=== PATIENT | female | born 1950 | race Caucasian/White ===

== ENCOUNTER 2019-11-21 19:56 | Inpatient (IN) | payer OTHER ==
[~2019-11-21] VITALS: Ht 162.6 cm; Wt 85.9 kg
[2019-11-21 20:06] VITALS: Ht 162.6 cm; Wt 85.9 kg
[2019-11-21 20:32] LABS: BASOPHIL % 0.4 % (0-2); PLATELET COUNT 186 x10^3mcL (130-400); RED CELL DISTRIBUTION WIDTH 12.1 % (11.5-14.5)
[2019-11-21 20:45] LABS: CALCIUM 8.9 mg/dL (8.5-10.1); CARBON DIOXIDE 28.5 mmol/L (21-32); CHLORIDE SERUM 107 mmol/L (98-107); CREATININE SERUM 0.9 mg/dL (0.6-1.0); GFR1 > 60 mL/min; GLUCOSE SERUM 92 mg/dL (74-106); POTASSIUM SERUM 3.8 mmol/L (3.5-5.1); SODIUM SERUM 144 mmol/L (136-145)
[2019-11-21 20:49] LABS: ALBUMIN 3.9 g/dL (3.4-5.0); ALKALINE PHOSPHATASE 55 U/L (46-116); ALT/SGPT 22 U/L (14-59); AST/SGOT 14 U/L (15-37); BILIRUBIN TOTAL 0.39 mg/dL (0.20-1.00); TOTAL PROTEIN, SERUM 6.7 g/dL (6.4-8.2)
--- NOTE | 2019-11-21 21:17 | NUR ---
PT BIB SELF FOR INTERMITTENT CHEST PAIN THAT BEGAN AT APPROX 1430 TODAY. 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 PT REPORTS THE PAIN BEING SHARP AND INTERMITTENT. DENIES ANY PAIN UPON PALPATION AND DENIES ANY TRAUMA TO THE AREA. PT DENEIS ANY COUGH OR SOB. PT IS A/O X4. PT RESPS ARE E/U. PT IS ABLE TO AMBULATE WITH STEADY GAIT FROM ED LOBBY TO BED T1. PT PLAED ON COLLEGE RECRUITER. NO ACD NOTED AT THIS TIE
--- NOTE | 2019-11-21 21:17 | NUR ---
DR GONZALES AT BEDSIDE FOR MSE
--- NOTE | 2019-11-21 21:27 | NUR ---
PORTABLE XRAY AT BEDSIDE
--- NOTE | 2019-11-21 21:43 | NUR ---
PT MEDICATED PER EMAR ORDERS. PLEASE SEE EMAR. PT DENIES ANY PAIN AT THIS TIME. PT GIVEN CALL LIGHT. PT IS A/O X4. PT RESPS ARE E/U. NO ACD NOTED
--- NOTE | 2019-11-21 23:27 | NUR ---
PT RESTING IN ED [facility] AT THIS TIME. PT IS A/O X4. PT RESPS ARE E/.U CALL LIGHT WITH WITHIN REACH OF THE PT. NO ACD NOTED
[2019-11-22] MEDS ORDERED: TIROSINT25 MC1 (00:06)
[2019-11-22] MEDS ORDERED: SIMVASTATIN10 M1 (00:07)
[2019-11-22] MEDS ORDERED: SILDENAFIL CITR20 MG (00:07)
[2019-11-22] MEDS ORDERED: DICLOFENAC POT.50 M1 PO (00:07)
--- NOTE | 2019-11-22 00:12 | NUR ---
GAVE PT REPORT TO AMI RN ON TELE FLOOR. ALL QUESTIONS AND CONCERNS WERE ADDRESSED AT THIS TIME
[2019-11-22 00:17] LABS: MAGNESIUM 2.3 mg/dL (1.8-2.4)
[2019-11-22 00:18] LABS: CHOLESTEROL/HDL RATIO 3.6
--- NOTE | 2019-11-22 00:28 | NUR ---
PT TAKEN UPSTAIRS VIA ED [facility] BY MYSELF AND EMT RIKI. PT TRANSFERRED TO TELE BED WITH NO INCIDENCE.
[2019-11-22 00:35] VITALS: BP 108/69
--- NOTE | 2019-11-22 00:50 | NUR ---
RECEIVED PATIENT FROM ER AMBULATORY FROM [facility] TO BED, AA/O X4. DENIES CHEST PAIN. PLACE TELE #[id number] NSR WITH HR 95 NOTED. ORIENTED TO CALL LIGHT. GAVE WATER AND SNACK. CALL LIGHT WITHIN REACH. ENDORSE CARE TO DARRIN DOLL.
[2019-11-22 04:36] VITALS: BP 105/49
--- NOTE | 2019-11-22 06:22 | NUR ---
PT ASLEEP BUT EASILY AROUSABLE, SLEPT MOST OF TIME SINCE ADMITTED TO THE UNIT, NO C/O OF CHEST PAIN, 20G INSERTED TO RFA FOR CT CHEST WITH IV CONTRAST AM.
--- NOTE | 2019-11-22 07:53 | NUR ---
PATIENT IS A&OX4, FOLLOWS COMMANDS AND COOPERATES WELL. TELE #[id number], NSR, STATES MINOR AND TOLERABLE CHEST PAIN RADIATING TO LEFT ARM. PERIPEHRAL PULSES PALPABLE W/ NO SIGNS OF EDEMA. LUNG SOUNDS CTA BILATERALLY, ON RA, O2 SAT 98%, DENIES SOB. NORMOACTIVE BSX4, ABD SOFT AND ROUND, DENIES ABD PAIN. VOIDS USING RESTROOM, ABLE TO AMBULATE. SKIN IS INTACT. IV SITE IS CDI. PATIENT IS AWARE OF CT SCAN OF THE CHEST THAT WILL TAKE PLACE IN A FEW HOURS. PATIENT UNDERSTANDS THE IMPORTANCE OF BEING NPO. WILL CONTINUE TO MONITOR PATIENT.
[2019-11-22 08:06] LABS: CALCIUM 8.7 mg/dL (8.5-10.1); CARBON DIOXIDE 25.9 mmol/L (21-32); CHLORIDE SERUM 108 mmol/L (98-107); CREATININE SERUM 0.7 mg/dL (0.6-1.0); GFR1 > 60 mL/min; GLUCOSE SERUM 86 mg/dL (74-106); POTASSIUM SERUM 3.6 mmol/L (3.5-5.1); SODIUM SERUM 145 mmol/L (136-145)
[2019-11-22 08:14] LABS: BASOPHIL % 0.2 % (0-2); PLATELET COUNT 168 x10^3mcL (130-400); RED CELL DISTRIBUTION WIDTH 12.3 % (11.5-14.5)
[2019-11-22 08:25] VITALS: BP 117/58
--- NOTE | 2019-11-22 08:57 | NUR ---
PATIENT RETURNED FROM CT. PATIENT TOLERATED PROCEDURE WELL. WILL CONTINUE TO MONITOR PATIENT.
--- NOTE | 2019-11-22 09:15 | NUR ---
PATIENT IS RESTING COMFORTABLY AT THIS TIME AND IS EATING BREAKFAST. CHEST PAIN STILL PERSISTS. ADMINISTERED NTG AND WILL REASSESS IN AN HOUR FOR EFFECTIVENESS. WILL CONTINUE TO MONITOR.
[2019-11-22 12:11] VITALS: BP 125/55
[2019-11-22 15:09] VITALS: BP 105/67
--- NOTE | 2019-11-22 15:35 | NUR ---
PATIENT RECEIVED DISCHARGE INSTRUCTIONS. ALL QUESTIONS AND CONCERNS HAVE BEEN ADDRESSED. PATIENT DENIES ANY PAIN OR DISCOMFORT AT THIS TIME. IV SITE HAS BEEN DC, AND CATHETER IS INTACT. TELE HAS BEEN REMOVED AND RETURNED TO STATION. PATIENT AWAITING FOR ROOMATE TO LIBRARIAN PATIENT. UNTIL THEN, WILL CONTINUE TO MONITOR PATIENT.
== END 2019-11-22 15:58 | disposition home or self-care (01) | DRG 313 ==
LOC: ED 19:56 → DU 22:17
PROVIDERS: ADMIT Internal Medicine; ATTEND Internal Medicine
DX: R07.89 Other chest pain (principal); R09.1 Pleurisy; I10 Essential (primary) hypertension; I27.20 Pulmonary hypertension, unspecified; E78.5 Hyperlipidemia, unspecified; E03.9 Hypothyroidism, unspecified; I25.10 Atherosclerotic heart disease of native coronary artery without angina pectoris; M60.9 Myositis, unspecified; Z88.2 Allergy status to sulfonamides; Z82.49 Family history of ischemic heart disease and other diseases of the circulatory system; Z90.49 Acquired absence of other specified parts of digestive tract; Z79.899 Other long term (current) drug therapy
CPT/HCPCS: 83880; G0378; Q0092; Q9967